=== PATIENT | female | born 1980 | race Caucasian/White ===

== ENCOUNTER → 2020-08-20 | Outpatient (CLI) | payer BC, OTHER | LOC: EMI 16:30 | DX: G43.009 Migraine without aura, not intractable, without status migrainosus (principal); G43.829 Menstrual migraine, not intractable, without status migrainosus; G44.89 Other headache syndrome | CPT/HCPCS: 70551 ==

== ENCOUNTER → 2020-12-28 | Outpatient (CLI) | payer BC | LOC: MRI 07:05 | DX: R10.32 Left lower quadrant pain (principal); M47.816 Spondylosis without myelopathy or radiculopathy, lumbar region; M43.16 Spondylolisthesis, lumbar region; Z88.5 Allergy status to narcotic agent | CPT/HCPCS: 72197; A9577 ==